=== PATIENT | male | born 1930 | race Caucasian/White ===

== ENCOUNTER 2017-04-05 16:29 | Inpatient (IN) | payer MEDICARE, BC ==
[2017-04-05] MEDS ORDERED: LOTREL 10/20 CA1 CAP PO (21:41)
[2017-04-05] MEDS ORDERED: COREG6.25 MG (21:43)
[2017-04-05] MEDS ORDERED: ISOSORBIDE MONO30 M1 PO (21:44)
[2017-04-05] MEDS ORDERED: MOBIC7.5 MG PO (21:45)
[2017-04-05] MEDS ORDERED: PATADAY2.5 ML EACH EYE (21:46)
[2017-04-05] MEDS ORDERED: ZOLOFT25 MG PO (21:47)
[2017-04-05] MEDS ORDERED: HYDROCODON-ACE1 EAC7 PO (21:50)
[2017-04-05] MEDS ORDERED: ZOFRAN4 MG PO (21:52)
[2017-04-05] MEDS ORDERED: [UNRECOGNIZED DRUG - OTHER] TOPICAL (21:57)
[2017-04-05] MEDS ORDERED: BAYER CHEWABLE81 MG PO (21:58)
[2017-04-05] MEDS ORDERED: COLACE100 MG PO (21:58)
[2017-04-05] MEDS ORDERED: MIRALAX17 GM PO (21:58)
[2017-04-05] MEDS ORDERED: ALOPHEN PILLS5 MG PO (21:59)
[2017-04-05] MEDS ORDERED: MILK OF MAGNESI30 ML PO (22:00)
[2017-04-05 22:22] VITALS: BP 160/101
[2017-04-06 01:12] LABS: APPEARANCE CLEAR (CLEAR); BILIRUBIN NEGATIVE (NEGATIVE); COLOR YELLOW (YELLOW); GLUCOSE NEGATIVE (NEGATIVE); KETONE NEGATIVE (NEGATIVE); NITRITE NEGATIVE (NEGATIVE); PROTEIN TRACE mg/dL (NEGATIVE); UROBILINOGEN NORMAL (NORMAL)
[2017-04-06 01:13] LABS: BACTERIA MODERATE /hpf (NONE SEEN); CALCIUM OXALATE CRYSTALS 0-5 /hpf (NONE SEEN); EPITHELIAL CELLS 0-5 /hpf (0-5); MUCUS <1+ /lpf (NONE SEEN); RED CELLS - URINE 0-5 /hpf (0-5); WHITE CELLS - URINE 0-5 /hpf (0-5)
--- NOTE | 2017-04-06 01:29 | NUR ---
NEW ADMIT TO DOCTOR SIMS FROM [facility]. PATIENT ADMITTED FOR SUICIDAL IDEATIONS. TRANSPORTED TO [facility]IA [facility]. RECEIVED VIA WHEELCHAIR WITH [facility] STAFF BY HIS SIDE. CALM AND COOPERATIVE WITH ADMISSION ASSESSMENT AND ADMISSION HISTORY. VS STABLE. ORIENTED TO SELF ONLY. ANSWERS QUESTIONS APPROPRIATLY. WHEN ASKED ABOUT WHAT HAPPENED AT [facility], PATIENT STATES "THEY SAID THEY HEARD ME SAY I WAS GOING TO HANG MYSELF BUT IM NOT GOING TO HANG MYSELF. IF I SAID IT, I DONT REMEMBER IT." PATIENT ALSO STATES "THERE AINT NO WAY ID DO THAT, I AINT THAT CRAZY YET." PATIENT IS PLEASANT TO CONVERSATE WITH. 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 ALL TEETH HAVE BEEN EXTRACTED BUT PAINT HAS NO DENTURES. ORIENT TO UNIT. TRANSFERED TO BED. RESTING IN BED WTIH EYES CLOSED AT THIS TIME.
--- NOTE | 2017-04-06 06:45 | NUR ---
CONSENT TO TREAT RECEIVED FROM CARMELITA NATARAJAN (DAUGHTER). CODE WORD RECEIVED (DAVID). CODE STATUS DISCUSSED WITH DAUGHTER. DAUGHTER WANTS HIM TO BE A FULL CODE.
[2017-04-06 07:27] LABS: EOSINOPHILS 9.1 % (0-7); HEMATOCRIT 37.9 % (42.0-54.0); HEMOGLOBIN 12.5 g/dL (13.5-17.5); IMMATURE GRANULOCYTES 0.1 % (0-5); LYMPHOCYTES 18.8 % (15-50); MCH 28.5 pg (26.0-34.0); MCV 86.3 fL (80.0-100.0); MEAN PLATELET VOLUME 9.7 fL (7.4-10.4); MONOCYTES 11.1 % (2-11); NEUTROPHILS 59.9 % (40-80); PLATELET COUNT 360 10x3/uL (130-400); RBC 4.39 10x6/uL (4.20-6.10); RDW 13.2 % (11.5-14.5); WBC 7.9 10x3/uL (4.8-10.8)
[2017-04-06 08:02] LABS: HEMOGLOBIN A1C 6.2 % (4.8-6.0)
[2017-04-06 08:06] LABS: ALBUMIN 4.1 g/dL (3.4-5.0); ALKALINE PHOSPHATASE 125 U/L (46-116); ALT (SGPT) 16 U/L (10-68); CALC OSMOLALITY 286 mosm/kg (275-300); CALCIUM 9.1 mg/dL (8.5-10.1); CARBON DIOXIDE 30.2 mmol/L (21.0-32.0); CHLORIDE - SERUM 104 mmol/L (98-107); CHOL - HDL RATIO 2.3 ratio (2.3-4.9); CHOLESTEROL, TOTAL 199 mg/dL (0-200); CREATININE - SERUM 0.9 mg/dL (0.6-1.3); GLUCOSE 112 mg/dL (74-106); HDL CHOLESTEROL 88 mg/dL (32-96); LDL CHOLESTEROL 102 mg/dL (0-100); LDL-HDL RATIO 1.2 ratio (1.5-3.5); POTASSIUM - SERUM 3.6 mmol/L (3.5-5.1); PROTEIN - SERUM 7.3 g/dL (6.4-8.2); SODIUM 142 mmol/L (136-145); THYROID STIMULATING HORMONE 3.18 uIU/mL (0.36-3.74); TRIGLYCERIDE 49 mg/dL (30-200); UREA NITROGEN 21 mg/dL (7-18); eGFR NON AFRICAN AMERICAN 85 mL/min (90-120)
[2017-04-06 08:30] VITALS: BP 146/75
--- NOTE | 2017-04-06 15:45 | NUR ---
B) PATIENT IS CALM AND COMPLIANT HE IS BLIND AND CURYUNG, HE JUST WANTS TO GO TO HIS ROOM AND HE SITS BY THE DOOR AND WANTS TO GET OUT TO GO GET HIS CLOTHES. EXPLAINED TO THE PATIENT THAT HE IS HERE FOR THE DAY UNTIL LATER THIS PM. I) PROVIDE PRESCRIBED MEDS. R) PATIENT IS COMPLIANT WITH MEDS, HE DENIES ANY S.I. AND HE STATES THAT HE NEVER DID SAY THAT. P) CONTINUE POC.
[2017-04-06 19:30] VITALS: BP 118/68
--- NOTE | 2017-04-07 03:13 | NUR ---
B) patient is alert and oriented to self, defiant and combative with staff, very confused and unsteady on his feet, I) Administered scheduled medications, PRN Ativan 1 mg IM give for anxiety at 00:37 R) Medication compliant, resting quietly in bed with eyes closed, P) Continue plan of care.
[2017-04-07 06:15] LABS: RAPID PLASMA REAGIN Non Reactive (Non Reactive); VITAMIN D 25 HYDROXY 14.7 ng/mL (30.0-100.0)
[2017-04-07 07:48] VITALS: BMI 20.2
[2017-04-07 08:17] LABS: FOLATE (FOLIC ACID) - SERUM 17.9 ng/mL (>3.0)
[2017-04-07 08:30] VITALS: BP 148/76
--- NOTE | 2017-04-07 09:40 | NUR ---
B) PATIENT IS AWAKE AND ALERT TODAY, HE HAS BEEN REDIRECTED EASIER TODAY, HE HAS HAD TO URINATE A LOT THIS AM. HE SELF PROPELS IN W/C. I) PROVIDE PRESCRIBED MEDS. R) PATIENT IS COMPLIANT WITH MEDS. P) CONTINUE POC.
--- NOTE | 2017-04-07 10:01 | HP ---
PATIENT: HERNANDEZ WHITE MEDICAL RECORD: [id number] ACCOUNT: [id number] LOCATION:[facility] Vel[facility]quez[facility]128 : [birth year] ADMISSION DATE: 04/05/17 HISTORY AND PHYSICAL EXAMINATION IDENTIFYING DATA: This is the first correction admission for this 86-year-old white male. HISTORY OF PRESENT ILLNESS: This patient has a preexisting diagnosis of dementia. He has been housed at [facility] on their memory care unit. The patient had become increasingly confused. Apparently, he had shown evidence of depression and was overheard by staff to be threatening to suicide. Specifically, the patient stated that he was going to hang himself and because of concern about the patient's safety he was transferred here. Subsequent to admission here, the patient has denied that he made suicidal statements; however, he has been somewhat restless and agitated and is constantly seeking an exit. He claims that people are trying to harm him in some way. PAST MEDICAL HISTORY: The patient does have a history of constipation and gastritis as well as apparent osteoarthritis and hypertension. CURRENT MEDICATION: Include Mobic, Imdur, Colace, Lotensin, aspirin, Norvasc, Coreg, Zofran, milk of magnesia, and Dulcolax. FAMILY HISTORY: Noncontributory. 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 He has been a long-term resident of the [facility]. No substance abuse issues as far as can be determined. ALLERGIES: None listed. MENTAL STATUS: On interview, the patient is seated in a wheelchair. He moves about frequently. He constantly makes reference to trying to get out of the unit and states that people have been forcing him to remain for some reason that he does not understand. During the interview, the patient's mood is somewhat irritable. Affect is shallow and rather brittle. Speech is fairly fluent. Content of thought, as noted above, the patient has made recent suicidal statements. On sensorium testing, the patient is aware that he is in a hospital. He is not sure of the exact location. He is not correctly oriented as to the date. Remote recall seems fairly intact. Intermediate and short-term recall show significant deficits. 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 AXIS II: No diagnosis. AXIS III: Hypertension, gastritis, osteoarthritis. AXIS IV: Moderate. AXIS V: 38. HISTORY AND PHYSICAL [id number] HERNANDEZ WHITE PLAN: 1. The patient is admitted for further medical and psychiatric workup. 2. Diet and activities as tolerated. 3. We will coordinate with referring agency and primary care physician on aftercare plans. TRANSINT:[id number] Voice Confirmation ID: [id number] DOCUMENT ID: [id number] FABIANO SIMS III, MD at 1001 CC: [id number] DICTATION DATE: 04/06/17 1159 RETAIL MARKETING SPECIALIST: 04/06/17 1213 ADM IN [facility] [address] [id number]
--- NOTE | 2017-04-07 16:07 | NUR ---
PATIENT STARTED VOMITTING, PAGED DR. RAIN
[2017-04-07 19:30] VITALS: BP 149/123
--- NOTE | 2017-04-08 03:22 | NUR ---
B) Patient is alert and oriented to name only, restless and confused, thinks he has to go to work, I) Administered scheduled medications, PRN Haldol 2 mg PO at 2236, PRN Haldol 2 mg PO and Ativan 0.5 mg PO at 0209, R) Medication compliant, defiant and difficult to redirect, placed in hallway for safety, P) Continue plan of care.
--- NOTE | 2017-04-08 05:45 | PN ---
PATIENT:HERNANDEZ WHITE MEDICAL RECORD: [id number] LOCATION:[facility]EL[facility] Rushing ADMISSION DATE: 04/05/17 PROGRESS NOTE DATE OF SERVICE: 04/07/2017 SUBJECTIVE: No new complaint noted. OBJECTIVE: The patient became very agitated last night, quite confused and uncooperative. He did require p.r.n. Ativan. This morning, the patient is much more reserved. PHYSICAL EXAMINATION: NEUROLOGIC: On exam, mood is euthymic. Affect very constricted. Speech is quite terse. Content of thought is unchanged. Sensorium is unchanged. ASSESSMENT: No change in diagnosis. PLAN: 1. Continue all current medications. 2. Continue supportive therapy. TRANSINT:[id number] Voice Confirmation ID: [id number] DOCUMENT ID: [id number] FABIANO SIMS III, MD at 0545 CC: [id number] DICTATION DATE: 04/07/17 1154 INTERPERSONAL COMMUNICATIONS PROFESSOR: 04/07/17 1209 ADM IN [place] [address] [place] [id number]
[2017-04-08 08:00] VITALS: BP 142/58
--- NOTE | 2017-04-08 14:05 | NUR ---
B) PATIENT IS COMPLIANT WITH MEDS AND HE IS DEMENTED HE IS ORIENTED TO SELF ONLY, HE HAD PRN'S LAST NIGHT FOR AGGRESSION, BUT HE IS VERY SLEEPY TODAY. HE CAN STAND TODAY TO HELP WITH CHANGING CLOTHES. I) PROVIDE PRESCRIBED MEDS. R) PATIENT IS VERY SLEEPY. P) CONTINUE POC.
[2017-04-08 19:30] VITALS: BP 156/78
--- NOTE | 2017-04-09 04:29 | NUR ---
B) Patient is alert and oriented to name, restless and aggitated at times, I) Administered scheduled medications, monitored for falls and safety R) Medication compliant, sleeping in hallway for safety, P) Continue plan of care.
[2017-04-09 08:00] VITALS: BP 125/66
--- NOTE | 2017-04-09 08:10 | NUR ---
B) LYING IN RECLINER WITH EYES OPEN. RIGHT EYE BLIND. AWAKE AND ORIENTED TO NAME ONLY. I) ADMINISTERED PRESCRIBED MEDICATIONS. MONITOR FOR SAFETY. R) COMPLIANT WITH TAKING MEDICATIONS. RESTING QUIETLY IN RECLINER. NO AGGRSSION NOTED. P) CONTINUE PLAN OF CARE.
[2017-04-09 19:30] VITALS: BP 133/87
--- NOTE | 2017-04-09 21:27 | NUR ---
RECEIVED IN DAYROOM. SITTING IN CHAIR. SOCIAL AT TIMES. CALM AND COOPERATIVE WITH CARE AND ASSESSMENTS. DENIES THOUGHTS OF SELF HARM. ENCOURAEG TO EXPRESS NEEDS. REORIENT NEEDED, CONTINUE TO SIT IN DAYROOM AREA. CONTINUE PLAN OF CARE
[2017-04-10 09:41] VITALS: BP 146/81
--- NOTE | 2017-04-10 10:12 | PN ---
PATIENT:HERNANDEZ WHITE MEDICAL RECORD: [id number] LOCATION:P[facility]ELA Velasquez112 ADMISSION DATE: 04/05/17 PROGRESS NOTE DATE OF SERVICE: 04/09/2017 SUBJECTIVE: The patient complains about being in the hospital. OBJECTIVE: The patient has continued to show some irritability, but can be redirected. On exam, mood is indeed somewhat irritable. Affect is shallow. Speech tends to be somewhat tangential. Content of thought is negative for overt psychosis. Sensorium is unchanged. ASSESSMENT: No change in diagnosis. PLAN: 1. Continue present medications. 2. Continue supportive therapy. TRANSINT:[id number] Voice Confirmation ID: [id number] DOCUMENT ID: [id number] FABIANO SIMS III, MD at 1012 CC: [id number] DICTATION DATE: 04/09/17 1637 SENIOR QA AUTOMATION ENGINEER: 04/09/17 2212 ADM IN [place] [id number] [place] [address]
--- NOTE | 2017-04-10 21:01 | PN ---
PATIENT:HERNANDEZ WHITE MEDICAL RECORD: [id number] LOCATION:[facility] ADMISSION DATE: 04/05/17 PROGRESS NOTE DATE OF SERVICE: 04/10/2017 SUBJECTIVE: No new complaint. OBJECTIVE: The patient has been doing fairly well over the weekend. No agitation or combativeness; however, he is sleeping poorly. On exam, mood is euthymic. Affect rather constricted. Speech is somewhat terse. Content of thought focuses only on somatic concerns. Sensorium shows no change. ASSESSMENT: No change in diagnosis. PLAN: 1. We will likely add trazodone at bedtime 2. Continue other medications. 3. Continue supportive therapy. TRANSINT:[id number] Voice Confirmation ID: [id number] DOCUMENT ID: [id number] FABIANO SIMS III, MD at 2101 CC: [id number] DICTATION DATE: 04/10/17 1050 ENVELOPE FOLDING MACHINE OPERATOR: 04/10/17 1219 ADM IN [place] [id number] [place] [address]
--- NOTE | 2017-04-10 22:16 | NUR ---
RECEIVED IN HALLWAY. RESTING IN RECLINER WITH EYES OPEN. SOCIAL WITH STAFF. CALM AND COOPERATIVE WITH CARE AND ASSESSMENTS. DENIES THOUGHTS OF SELF HARM. ENCOURAEG TO EXPRESS NEEDS. CONTINUES TO REST QUIETLY IN HALLWAY. CONTINUE PLAN OF CARE
[2017-04-11 06:57] VITALS: BP 121/64
[2017-04-11 08:30] VITALS: BP 121/64
--- NOTE | 2017-04-11 10:00 | NUR ---
AWAKE AND ALERT, CALM AND COOPERATIVE WITH CARE AND ASSESSMENT. VSS. DENIES SELF HARM. NO AGGRESSION NOTED. WILL CONT. POC.
--- NOTE | 2017-04-11 10:55 | NUR ---
Nutrition Follow Up: Pt is eating 54% meal avg on a regular puree diet. Pt requires assistance at meal time. Per MD note pt with poor appetite - to start Megace. +BM 04/10/17. Meds and labs reviewed. Rec continue regular diet with DATABASE MANAGER recs for consistencies. Rec continue Megace. RD following.
--- NOTE | 2017-04-11 14:00 | NUR ---
PATIENT BECAME VERY PALE, DIFFICULT TO AROUSE VERBALLY. TAKEN TO PATIENTS ROOM . VSS B/P 73/40 PULSE 52 RESP=12 WAS ABLE TO GET VERBAL RESPONSE. ASSISTED PATIENT IN BED AND PLACED BED IN [place] POSITION.
--- NOTE | 2017-04-11 14:20 | NUR ---
B/P=116/70 PULSE=62 RESP=14 COLOR IMPROVED.
--- NOTE | 2017-04-11 15:30 | NUR ---
B/P=112/68 PULSE=70 O2 SAT=94% LYING IN BED RESTING WITH EYES CLOSED.
[2017-04-11 20:25] VITALS: BP 123/87
--- NOTE | 2017-04-11 22:42 | NUR ---
RECEIVED IN BEDROOM. LAYING QUIETLY IN BED WITH HIS EYES CLOSED. PICKING IN THE AIR. HAVING VISUAL HALLUCINATIONS. CALM AND COOPERATIVE WITH CARE AND ASSESSMENTS. REDIRECT AND REORIENT NEEDED. CONTINUE PLAN OF CARE
--- NOTE | 2017-04-12 10:26 | PN ---
PATIENT:HERNANDEZ WHITE MEDICAL RECORD: [id number] LOCATION:P[facility]ELA Velasquez112 ADMISSION DATE: 04/05/17 PROGRESS NOTE DATE OF SERVICE: 04/11/2017 SUBJECTIVE: No new verbal complaint. OBJECTIVE: The patient continues to have great difficulty sleeping at night. He is drowsy during the day. On exam, mood is for the most part euthymic. Affect is very constricted. Speech is minimal and terse. Content of thought focuses only on somatic concerns. Sensorium shows no change. ASSESSMENT: No change in diagnosis. PLAN: 1. We will adjust medications to promote sleep. 2. Continue other treatment plans and supportive therapy. TRANSINT:[id number] Voice Confirmation ID: [id number] DOCUMENT ID: [id number] FABIANO SIMS III, MD at 1026 CC: [id number] DICTATION DATE: 04/11/17 1154 RODDING MACHINE TENDER: 04/11/17 1238 ADM IN [facility] [address] [place] [address]
[2017-04-12 10:36] VITALS: BP 103/64
--- NOTE | 2017-04-12 13:13 | NUR ---
B) PATIENT CONTINUES TO BE SLEEPY TODAY, HE IS MOVING AROUND IN A CARTER CHAIR, BUT HE KEEPS HIS EYES OPEN EVEN IF HE IS SLEEPING. HE HAS NOT SHOWN ANY AGGRESSION OR ANXIETY TODAY, WILL CONTINUE TO MONITOR. HE DOES HELP STAFF WITH TRANSFERS, BUT HE USES A W/C AT TIMES TO SELF PROPEL. I) PROVIDE PRESCRIBED MEDS. R) PATIENT IS COMPLIANT WITH MEDS. P) CONTINUE POC.
[2017-04-12 19:52] VITALS: BP 120/50
--- NOTE | 2017-04-13 00:15 | NUR ---
B) patient is sleeping in the day room, arrouses to name, JOSUE, Blind in right eye, calm and cooperative this shift, I) Administered scheduled medications, monitored for safety, R) Medication compliant, resting in the hallway for safety P) Continue plan of care.
--- NOTE | 2017-04-13 04:01 | PN ---
PATIENT:HERNANDEZ WHITE MEDICAL RECORD: [id number] LOCATION:[facility]eder[facility]AX[facility]ugh [facility]quez[facility]aria ADMISSION DATE: 04/05/17 PROGRESS NOTE DATE OF SERVICE: 04/12/2017 SUBJECTIVE: No new complaint. OBJECTIVE: The patient did have an episode of hypotension yesterday evening. He is stabilized now. Coreg has been discontinued. On exam, mood is euthymic. Affect is rather constricted. Speech is rather terse. Content of thought focuses only on somatic concerns. Sensorium shows no change. ASSESSMENT: No change in diagnosis. PLAN: 1. Discontinue Seroquel. 2. Maintain other medications. 3. Continue supportive therapy. TRANSINT:[id number] Voice Confirmation ID: [id number] DOCUMENT ID: [id number] FABIANO SIMS III, MD at 0401 CC: [id number] DICTATION DATE: 04/12/17 1145 STOVE CLEANER: 04/12/17 1240 ADM IN [place] [id number] [place] [address]
[2017-04-13 07:30] VITALS: BP 149/77
--- NOTE | 2017-04-13 11:36 | NUR ---
B) PATIENT'S DAUGHTER CALLED AND ASKED HOW HE IS DOING AND WONDERED WHEN HE MAY GET D/C'D. PATIENT IS MORE AWAKE TODAY. HE IS CONFUSED. I) PROVIDE PRESCRIBED MEDS. R) PATIENT IS COMPLIANT WITH MEDS. P) CONTINUE POC.
[2017-04-13 20:31] VITALS: BP 99/47
--- NOTE | 2017-04-13 21:05 | PN ---
PATIENT:HERNANDEZ WHITE MEDICAL RECORD: [id number] LOCATION:Federico[facility]AXSON[facility]ugh Velasquez112 ADMISSION DATE: 04/05/17 PROGRESS NOTE DATE OF SERVICE: 04/13/2017 SUBJECTIVE: No new complaint. OBJECTIVE: The patient is doing overall better. He slept somewhat better last night. He is pleasant this morning. On exam, mood is euthymic. Affect bland. Speech is terse. Content of thought is negative for suicidal ideation. Sensorium is unchanged. ASSESSMENT: No change in diagnosis. PLAN: 1. Maintain current medications. 2. Continue supportive therapy. TRANSINT:[id number] Voice Confirmation ID: [id number] DOCUMENT ID: [id number] FABIANO SIMS III, MD at 2105 CC: [id number] DICTATION DATE: 04/13/17 1305 SPECIAL INVESTIGATOR: 04/13/17 1358 ADM IN [facility] [address] [place] [address]
--- NOTE | 2017-04-14 01:39 | NUR ---
B) Patient is alert and oriented to self, calm and cooperative this shift, blind in right eye, I) Administered scheduled medications, monitored for safety R) Medication compliant, resting quietly in bed with one eye closed P) Continue plan of care.
[2017-04-14 08:00] VITALS: BP 120/42
[2017-04-14] MEDS ORDERED: MEGACE ES625 MG/5 M PO (12:33)
[2017-04-14] MEDS ORDERED: NORVASC10 MG PO (12:34)
[2017-04-14] MEDS ORDERED: TRAZODONE HCL50 MG PO (12:35)
[2017-04-14] MEDS ORDERED: BENAZEPRIL HCL10 MG PO (12:35)
--- NOTE | 2017-04-14 13:09 | NUR ---
SW SPOKE WITH PT'S DTR, CARLOZ, ABOUT PT DISCHARGING TODAY AROUND 3PM. DTR VOICED UNDERSTANDING OF PT'S DISCHARGE PLANS.
--- NOTE | 2017-04-14 14:24 | NUR ---
B) PATIENT IS AWAKE AND ALERT, HE IS BEING D/C'D TODAY, HE IS PLEASANT, NOT SHOWING ANY DEPRESSION OR MAKING ANY S.I. HE HAS SAID HE DOES NOT KNOW HOW THESE PEOPLE CAN SLEEP ALL THE TIME. PATIENT CAN STAND WITH STAFF ASSIST. HE IS BLIND IN RIGHT EYE AND CAN NOT SEE WELL OUT OF THE LEFT. SKIN TEAR NOTED TO RIGHT ELBOW. I) PROVIDE PRESCRIBED MEDS. R) PATIENT IS COMPLIANT WITH MEDS. P) CONTINUE POC.
--- NOTE | 2017-04-14 21:52 | DS ---
PATIENT:HERNANDEZ WHITE :[birth year] MEDICAL RECORD: [id number] DISCHARGE SUMMARY ADMISSION DATE: 04/05/17 DISCHARGE DATE: 04/14/17 DATE OF ADMISSION: 04/05/2017 DATE OF DISCHARGE: 04/14/2017 HISTORY: An 86-year-old white male who was transferred from [facility] in [place]. At the time of admission, the patient had a preexisting diagnosis of dementia. He had become gradually more confused. The patient had been overheard by staff to be threatening suicide and for this reason he was transferred. For further details, please see previously dictated history. COURSE IN THE HOSPITAL: The patient was assessed by Dr. Segura. Dr. 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 From a psychiatric standpoint, the patient was managed relatively conservatively. He did exhibit insomnia and was started on trazodone, dosage was stabilized at 75 mg at bedtime. He was placed on Megace for poor appetite. Aside from this, the patient was maintained on antihypertensive medications including Norvasc and Lotensin. The patient did have one episode of hypotension, but recovered well from this. At the time of discharge, the patient was stable and ready to return to the shelter environment. FINAL DIAGNOSES: AXIS I: Alzheimer's dementia with behavioral disturbance - improving. AXIS II: No diagnosis. AXIS III: Hypertension, osteoarthritis, gastritis. AXIS IV: Moderate. AXIS V: 46. PLAN: 1. The patient is discharged on current medication. 2. Diet and activities are as tolerated. 3. Follow up by shelter physician. TRANSINT:[id number] Voice Confirmation ID: [id number] DOCUMENT ID: [id number] FABIANO SIMS III, MD at 2152 CC: [id number] DICTATION DATE: 04/14/17 1241 RN DELIVERY: 04/14/17 1416 DIS IN 04/14/17 [address] [id number] [place] [address]
== END 2017-04-14 17:25 | DRG 57 ==
LOC: D.PSYCH 16:29
PROVIDERS: ADMIT Psychiatry & Neurology Psychiatry
DX: G30.9 Alzheimer's disease, unspecified (principal); F02.81 Dementia in other diseases classified elsewhere, unspecified severity, with behavioral disturbance; I10 Essential (primary) hypertension; M19.90 Unspecified osteoarthritis, unspecified site; K29.70 Gastritis, unspecified, without bleeding; R63.0 Anorexia; I49.1 Atrial premature depolarization; F41.9 Anxiety disorder, unspecified; K59.00 Constipation, unspecified; H54.61 Unqualified visual loss, right eye, normal vision left eye; Z74.09 Other reduced mobility